=== PATIENT | male | born 2000 | race Caucasian/White ===

== ENCOUNTER 2021-08-09 13:52 | Emergency (ER) | payer OTHER ==
[~2021-08-09] VITALS: Ht 165.1 cm; Wt 79.4 kg
[2021-08-09 14:43] VITALS: BP 125/64
--- NOTE | 2021-08-09 15:09 | NUR ---
WALKED IN C/O B/L EYE BURNING SENSATION ONSET 2 WKS AFTER TAKING VISINE FOR DISCOMFORT. DENIES VISUAL DEFICIT, AAOX4, AMBULATORY, VITALS STABLE.
[2021-08-09] MEDS ORDERED: FLUORESCEIN OPTH STRIP 1 MG OP ONE (16:20)
[2021-08-09] MEDS ORDERED: LORA10TA19 PO (16:36)
[2021-08-09] MEDS ORDERED: OLOP2.5D7 OP (16:36)
[2021-08-09 16:45] VITALS: BP 121/66
== END 2021-08-09 16:45 | disposition home or self-care (01) ==
LOC: MED 13:52
DX: H10.13 Acute atopic conjunctivitis, bilateral (principal); Z79.899 Other long term (current) drug therapy
CPT/HCPCS: 99282